=== PATIENT | male | born 1975 | race Hispanic/Latino ===

== ENCOUNTER 2020-06-11 11:26 | Emergency (ER) | payer BC ==
[~2020-06-11] VITALS: Ht 167.6 cm; Wt 91.3 kg
--- NOTE | 2020-06-11 12:54 | Emergency Department Note ---
History of Present Illnes History of Present Illness Chief Complaint: Extremity Trauma/Pain History of Present Illness This is a 45 year old male Chief Complaint Comment Reports that he tripped and fell in his backyard and landed on his right hand onto concrete and today his right hand is swollen and painful and he cannot move his thumb. . Arrival Mode: Car Onset (how long ago): day(s) (1) Location: right wrist Quality: sharp Radiation: Denies non-radiation, Denies back, Denies neck, Denies extremity, Denies abdomen, Denies periumbilical, Denies flank, Denies proximal, Denies distal, Denies other Severity: moderate Onset quality: sudden Duration (how long): day(s) (1) Timing of current episode: constant Progression: worsening Chronicity: new Context: Denies recent illness, Denies recent surgery, Denies recent immobilization, Denies recent travel, Denies trauma/injury, Denies new medications, Denies hx of DVT/PE, Denies non-compliance w/ medications, Denies other Relieving factors: rest Exacerbating factors: movement Associated symptoms: Denies denies other symptoms, Denies confusion, Denies chest pain, Denies cough, Denies diaphoresis, Denies fever/chills, Denies headaches, Denies loss of appetite, Denies malaise, Denies nausea/vomiting, Denies rash, Denies seizure, Denies shortness of breath, Denies syncope, Denies weakness, Denies other Treatments prior to arrival: none Past Medical/Family History Physician Review I have reviewed the patient's past medical and family history. Any updates have been documented here. Past Medical History Recent Fever: No Clinical Suspicion of Infectio: No New/Unexplained Change in Ment: No Past Medical History: Hyperlipedemia Past Surgical History: None Social History Smoking Cessation: Never Smoker Counseling Performed: No Alcohol Use: Occasional Any Illegal Drug Use: No Physically hurt or threatened: No Other Any Pre-Existing Lines (PICC,: No Review of Systems Review of Systems Constitutional: Reports no symptoms EENTM: Reports no symptoms Cardiovascular: Reports no symptoms Respiratory: Reports no symptoms Gastrointestinal: Reports no symptoms Genitourinary: Reports no symptoms Musculoskeletal: Reports as per HPI Integumentary: Reports no symptoms Neurological: Reports no symptoms Psychological: Reports no symptoms Endocrine: Reports no symptoms Hematological/Lymphatic: Reports no symptoms Physical Exam Related Data Allergies: Coded Allergies: naproxen (Verified Allergy, Intermediate, swelling, itching, hives, ) Triage Vital Signs Vital Signs Date Time Temp Pulse Resp B/P (MAP) Pulse Ox O2 Delivery O2 Flow Rate FiO2 06/11/20 11:32 97.5 66 16 151/99 98 Room Air Vital signs reviewed: Yes Physical Exam CONSTITUTIONAL Constitutional: Present well-developed, Present well-nourished HENT HENT: Present normocephalic, Present atraumatic, Present oropharynx clear/moist, Present nose normal HENT L/R: Present left ext ear normal, Present right ext ear normal EYES Eyes: Reports PERRL, Reports conjunctivae normal NECK Neck: Present ROM normal PULMONARY Pulmonary: Present effort normal, Present breath sounds normal CARDIOVASCULAR Cardiovascular: Present regular rhythm, Present heart sounds normal, Present capillary refill normal, Present normal rate GASTROINTESTINAL Abdominal: Present soft, Present nontender, Present bowel sounds normal GENITOURINARY Genitourinary: Present exam deferred SKIN Skin: Present warm, Present dry MUSCULOSKELETAL Musculoskeletal: Present ROM normal, Present tenderness (right wrist) NEUROLOGICAL Neurological: Present alert, Present oriented x 3, Present no gross motor or sensory deficits PSYCHOLOGICAL Psychological: Present mood/affect normal, Present judgement normal Results Imaging Imaging results reviewed: Yes Procedures Orthopedic Splinting/Casting Injury: Injury #1 Side: right Upper exremity injury location: hand Upper extremity immobilizer: volar splint Assessment & Plan Medical Decision Making MDM FX CONTUSION Reassessment Reassessment BETTER Assessment & Plan Final Impression: (1) Fracture of first metacarpal bone of right hand (2) Acute pain due to trauma Depart Disposition: HOME, SELF-CARE Last Vital Signs Date Time Temp Pulse Resp B/P (MAP) Pulse Ox O2 Delivery O2 Flow Rate FiO2 06/11/20 11:32 97.5 66 16 151/99 98 Room Air CARLOS SMITH MD Jun 11, 2020 12:54
--- NOTE | 2020-06-11 12:59 | Diagnostic Imaging Report ---
Exam: Right forearm 2 views, right wrist 3 views, right hand 3 views History: Status post fall Comparison: None. Findings: Forearm: No acute, displaced fracture or dislocation. Partially visualized elbow joint space is well-maintained. Soft tissues unremarkable. Wrist: No acute, displaced carpal fracture or dislocation. Appropriate alignment is maintained between the distal radius, lunate, and capitate on the lateral radiograph. Joint spaces are well-maintained. Soft tissues are unremarkable. Hand: Acute, intra-articular fracture of the base of the first metacarpal with minimal displacement. No additional displaced fracture or dislocation. Joint spaces are well-maintained. Soft tissue swelling overlying the lateral carpus. Impression: Acute, mildly displaced intra-articular fracture of the base of the first metacarpal with overlying soft tissue swelling. Signed by: Dr. Aldo Steel M.D. on 06/11/2020 12:56 PM
--- OUTSIDE RECORDS SUMMARY | 2020-06-14 19:11 | XMS REPORT | Continuity of Care Document ---
Author Author [facility] t Organization [facility] Address [address] [place] [address] Phone Unavailable Care Team Providers Care Plush Brusher Name Role Phone Prateek Masters Attphys Unavailable Prateek Masters Attphys Unavailable CARLOS SMITH Attphys Unavailable Prateek Masters Admphys Unavailable Payers Payer Name Policy Type Policy Number Effective Date Expiration Date S ource Problems This patient has no known problems. Allergies, Adverse Reactions, Alerts Allergy Name Allergy Type Status Severity Reaction(s) Onset Date Inacti ve Date Treating Clinician Comments Source ibuprofen DA Active U 2019-01-09 00:00:00 [facility] naproxen DA Active U 2019-01-09 00:00:00 [facility] ibuprofen DA Active U 2016-03-01 00:00:00 [facility] naproxen DA Active U 2016-03-01 00:00:00 [facility] Medications This patient has no known medications. Procedures This patient has no known procedures. Encounters Start Date/Time End Date/Time Encounter Type Admission Type Attendi [facility] Care Department Encounter ID Source 2020-06-12 14:30:00 2020-06-12 23:59:00 Outpatient 2 H Matt chu Mark [facility] [id number] [facility] 2020-06-12 14:30:00 2020-06-12 14:30:00 Outpatient 2 H Matt chu Mark [facility] [id number] [facility] Results Test Description Test Time Test Comments Results Result Comments Source WRIST 3VW RT - HOPD 2020-06-11 12:50:00 [place] [address] Patient Name: ANTONINA WHEELER MR #: [id number] : 1975 Age/Sex: 45/M Req #: [id number] Adm Physician: Ordered by: CARLOS SMITH MD Report #: [id number] Location: FS Room/Bed: Procedure: [id number] HOPD/WRIST 3VW RT - HOPD Exam Date: 06/11/20 Exam Time: 1209 REPORT STATUS: Signed Exam: Right forearm 2 views, right wrist 3 views, right hand 3 views History: Status post fall Comparison: None. Findings: Forearm: No acute, displaced fracture or dislocation. Partially visualized elbow joint space is well-maintained. Soft tissues unremarkable. Wrist: No acute, displaced carpal fracture or dislocation. Appropriate alignment is maintained between the distal radius, lunate, and capitate on the lateral radiograph. Joint spaces are well- maintained. Soft tissues are unremarkable. Hand: Acute, intra-articular fracture of the base of the first metacarpal with minimal displacement. No additional displaced fracture or dislocation. Joint spaces are well- maintained. Soft tissue swelling overlying the lateral carpus. Impression: Acute, mildly displaced intra-articular fracture of the base of the first metacarpal with overlying soft tissue swelling. Signed by: Dr. Deisy Gama M.D. on 06/11/2020 12:56 PM Dictated By: DEISY GAMA MD 1254 Transcribed By: AKVITHA on 06/11/20 1256 COPY TO: CARLOS SMITH MD HAND 3 VIEW RT - HOPD 2020-06-11 12:50:00 [facility] [address] [place] [address] Patient Name: ANTONINA WHEELER MR #: [id number] : 1975 Age/Sex: 45/M Req #: [id number] Adm Physician: Ordered by: CARLOS SMITH MD Report #: [id number] Location: [facility] Room/Bed: Procedure: [id number] HOPD/HAND 3 VIEW RT - HOPD Exam Date: 06/11/20 Exam Time: 1209 REPORT STATUS: Signed Exam: Right forearm 2 views, right wrist 3 views, right hand 3 views History: Status post fall Comparison: None. Findings: Forearm: No acute, displaced fracture or dislocation. Partially visualized elbow joint space is well-maintained. Soft tissues unremarkable. Wrist: No acute, displaced carpal fracture or dislocation. Appropriate alignment is maintained between the distal radius, lunate, and capitate on the lateral radiograph. Joint spaces are well- maintained. Soft tissues are unremarkable. Hand: Acute, intra-articular fracture of the base of the first metacarpal with minimal displacement. No additional displaced fracture or dislocation. Joint spaces are well- maintained. Soft tissue swelling overlying the lateral carpus. Impression: Acute, mildly displaced intra-articular fracture of the base of the first metacarpal with overlying soft tissue swelling. Signed by: Dr. Deisy Gama M.D. on 06/11/2020 12:56 PM Dictated By: DEISY GAAM MD 1256 Transcribed By: KAVITHA on 06/11/20 1256 COPY TO: CARLOS SMITH MD FOREARM 2 VIEW RT - HOPD 2020-06-11 12:50:00 [facility] [address] [place] [address] Patient Name: ANTONINA WHEELER MR #: [id number] : 1975 Age/Sex: 45/M Req #: [id number] Adm Physician: Ordered by: CARLOS SMITH MD Report #: [id number] Location: FS Room/Bed: Procedure: [id number] HOPD/FOREARM 2 VIEW RT - HOPD Exam Date: 06/11/20 Exam Time: 1209 REPORT STATUS: Signed Exam: Right forearm 2 views, right wrist 3 views, right hand 3 views History: Status post fall Comparison: None. Findings: Forearm: No acute, displaced fracture or dislocation. Partially visualized elbow joint space is well-maintained. Soft tissues unremarkable. Wrist: No acute, displaced carpal fracture or dislocation. Appropriate alignment is maintained between the distal radius, lunate, and capitate on the lateral radiograph. Joint spaces are well- maintained. Soft tissues are unremarkable. Hand: Acute, intra-articular fracture of the base of the first metacarpal with minimal displacement. No additional displaced fracture or dislocation. Joint spaces are well- maintained. Soft tissue swelling overlying the lateral carpus. Impression: Acute, mildly displaced intra-articular fracture of the base of the first metacarpal with overlying soft tissue swelling. Signed by: Dr. Deisy Gama M.D. on 06/11/2020 12:56 PM Dictated By: DEISY GAMA MD 1255 Transcribed By: KAVITHA on 06/11/20 1256 COPY TO: CARLOS SMITH MD - XR CHEST 2 V 2019-02-17 00:48:00 FAX: Tiffany Lockhart MD [phone] [place]: St: REG -- Name: ANTONINA WHEELER [facility] : 1975 Age/S: 43/M [address] [facility] Unit #: [id number] Loc: [place] [address] Phys: Tiffany Lockhart MD Acct: [id number] Dis Date: Status: REG ER PHONE #: [phone] Exam Date: 02/17/2019 0025 FAX #: [phone] Reason: cough EXAMS: CPT CODE: [id number] XR CHEST 2 V 55718 LOCATION: Q15 HISTORY: 43-year-old male who presents with a cough. COMMENT: Frontal and lateral chest radiographs were obtained. An older examination of January 09, 2019 is available for comparison. The lungs are clear and well-aerated. The cardiac silhouette, monty, and mediastinum are within normal limits. The skeleton and soft tissues are unremarkable. IMPRESSION: Unremarkable radiographic examination of the chest. Field 5 at 0048 Reported and signed by: Naveen Charlton M.D. CC: Tiffany Lockhart MD Technologist: Lu Collier [employer] Date/Time/By: 02/17/2019 (0048) : By: [email or web address] Orig Print D/T: S: 02/17/2019 (0051) PAGE 1 Signed Report COMPREHENSIVE METABOLIC PANEL 2019-02-17 00:19:00 Test Item SODIUM (test code = NA) 140 mmol/L 136-145 N POTASSIUM (test code = K) 3.9 mmol/L 3.5-5.1 N CHLORIDE (test code = CL) 107.0 mmol/L 98-107 N CARBON DIOXIDE (test code = CO2) 28.0 mmol/L 21-32 N ANION GAP (test code = GAP) 8.9 10-20 L GLUCOSE (test code = GLU) 103 mg/dL 74-106 N BLOOD UREA NITROGEN (test code = BUN) 18 mg/dL 7-18 N GLOMERULAR FILTRATION RATE (test code = GFR) > 60 mL/min >=60 Estimated GFR by using Modified MDRD formula.Chronic kidney disease is defined as either kidney damageor GFR <60 mL/min/1.73 m2 for >3 months. CREATININE (test code = CREAT) 1.10 mg/dL 0.7-1.3 N BUN/CREATININE RATIO (test code = BUN/CREA) 16.4 10-20 N TOTAL PROTEIN (test code = PROT) 8.0 gram/dL 6.4-8.2 N ALBUMIN (test code = ALB) 4.1 g/dL 3.4-5.0 N GLOBULIN (test code = GLOB) 3.9 gram/dL 2.7-4.2 N ALBUMIN/GLOBULIN RATIO (test code = A/G) 1.1 0.75-1.50 N CALCIUM (test code = CA) 9.1 mg/dL 8.5-10.1 N BILIRUBIN TOTAL (test code = BILT) 0.90 mg/dL 0.0-1.0 N SGOT/AST (test code = AST) 25 IUnit/L 15-37 N SGPT/ALT (test code = ALT) 49 IUnit/L 12-78 N ALKALINE PHOSPHATASE TOTAL (test code = ALKP) 73 IUnit/L 45-117 N Note change in reference range due to change in reagent. COMPREHENSIVE METABOLIC [id number] 00:09:00* Test Item Value Reference Range Interpretation Comments SODIUM (test code = NA) 140 mmol/L 136-145 N POTASSIUM (test code = K) 3.9 mmol/L 3.5-5.1 N CHLORIDE (test code = CL) 107.0 mmol/L 98-107 N CARBON DIOXIDE (test code = CO2) mmol/L 21-32 ANION GAP (test code = GAP) 10-20 GLUCOSE (test code = GLU) mg/dL 74-106 BLOOD UREA NITROGEN (test code = BUN) mg/dL 7-18 GLOMERULAR FILTRATION RATE (test code = GFR) mL/min >=60 CREATININE (test code = CREAT) mg/dL 0.7-1.3 BUN/CREATININE RATIO (test code = BUN/CREA) 10-20 TOTAL PROTEIN (test code = PROT) gram/dL 6.4-8.2 ALBUMIN (test code = ALB) g/dL 3.4-5.0 GLOBULIN (test code = GLOB) gram/dL 2.7-4.2 ALBUMIN/GLOBULIN RATIO (test code = A/G) 0.75-1.50 CALCIUM (test code = CA) mg/dL 8.5-10.1 BILIRUBIN TOTAL (test code = BILT) mg/dL 0.0-1.0 SGOT/AST (test code = AST) IUnit/L 15-37 SGPT/ALT (test code = ALT) IUnit/L 12-78 ALKALINE PHOSPHATASE TOTAL (test code = ALKP) IUnit/L 45-117 CBC W/AUTO HDMY* Test Item Value Reference Range Interpretation Comments WHITE BLOOD CELL (test code = WBC) 12.4 K/mm3 4.5-12.5 N RED BLOOD CELL (test code = RBC) 4.89 mill/mm3 4.0-5.8 N HEMOGLOBIN (test code = HGB) 14.2 gram/dL 13.0-17.5 N HEMATOCRIT (test code = HCT) 42.6 % 42.0-52.0 N MEAN CELL VOLUME (test code = MCV) 87.1 fL 80-98 N MEAN CELL HGB (test code = MCH) 29.0 picogram 27.0-33.0 N MEAN CELL HGB CONCETRATION (test code = MCHC) 33.3 gram/dL 33.0-36. 0 N RED CELL DISTRIBUTION WIDTH (test code = RDW) 12.8 % 11.6-16. 2 N RED CELL DISTRIBUTION WIDTH SD (test code = RDW-SD) 40.1 fL 37 .0-51.0 N PLATELET COUNT (test code = PLT) 274 K/mm3 150-450 N MEAN PLATELET VOLUME (test code = MPV) 10.2 fL 6.7-11.0 N NEUTROPHIL % (test code = NT%) 63.9 % 39.0-69.0 N IMMATURE GRANULOCYTE % (test code = IG%) 0.4 % 0.0-5.0 N LYMPHOCYTE % (test code = LY%) 25.3 % 25.0-55.0 N MONOCYTE % (test code = MO%) 8.0 % 0.0-10.0 N EOSINOPHIL % (test code = EO%) 2.1 % 0.0-5.0 N BASOPHIL % (test code = BA%) 0.3 % 0.0-1.0 N NUCLEATED RBC % (test code = NRBC%) 0.0 % 0-0 N NEUTROPHIL # (test code = NT#) 7.92 K/mm3 1.8-7.7 H IMMATURE GRANULOCYTE # (test code = IG#) 0.05 x10 3/uL 0-0.03 H LYMPHOCYTE # (test code = LY#) 3.14 K/mm3 1.0-5.0 N MONOCYTE # (test code = MO#) 0.99 K/mm3 0-0.8 H EOSINOPHIL # (test code = EO#) 0.26 K/mm3 0.0-0.5 N BASOPHIL # (test code = BA#) 0.04 K/mm3 0.0-0.2 N NUCLEATED RBC # (test code = NRBC#) 0.00 K/mm3 0.0-0.1 N MANUAL DIFF REQUIRED (test code = MDIFF) NO - XR CHEST 2 [id number] 08:56:00 FAX: Iris Masters NP [place]: St: REG Name: ANTONINA CRESPO [facility] : [birth year] Age/S: 43/M [address] [facility] Unit #: [id number] Loc: [place] [address] Phys: Iris Masters NP Acct: [id number] Dis Date: Status: REG ER PHONE #: [phone] Exam Date: 01/09/2019 0847 FAX #: [phone] Reason: cough, chest pain EXAMS: CPT CODE: [id number] XR CHEST 2 V 42862 HISTORY: Cough and chest pain. COMPARISON: March 01, 2016. AP and lateral view of the chest: No acute infiltrates, effusion or congestion. Cardiac and t he mediastinal silhouette are normal IMPRESSION: No acute infiltrates, effusion or congestion. at 0856 Repo rted and signed by: Modesto Rangel M.D. CC: Kellie Masters NP Technologist: OMEGA NARANJO RT (R) Trnscrd Date/Time/By: 01/09/2019 (0856) : By: [email or web address] Orig Print D/T: S: 01/09/2019 (0859) PAGE 1 Signed Report
== END 2020-06-11 13:22 | disposition home or self-care (01) ==
LOC: FSED 11:36
DX: S62.291A Other fracture of first metacarpal bone, right hand, initial encounter for closed fracture (principal); W01.0XXA Fall on same level from slipping, tripping and stumbling without subsequent striking against object, initial encounter; Y93.01 Activity, walking, marching and hiking; Y92.007 Garden or yard of unspecified non-institutional (private) residence as the place of occurrence of the external cause; E78.5 Hyperlipidemia, unspecified
CPT/HCPCS: 99284

== ENCOUNTER → 2021-02-11 | Outpatient (CLI) | payer BC | LOC: RAD 10:35 | PROVIDERS: ATTEND Internal Medicine | DX: M47.812 Spondylosis without myelopathy or radiculopathy, cervical region (principal) | CPT/HCPCS: 72050 ==

== ENCOUNTER → 2021-06-11 | Outpatient (CLI) | payer BC | LOC: RAD 12:46 | PROVIDERS: ATTEND Internal Medicine | DX: S43.401A Unspecified sprain of right shoulder joint, initial encounter (principal); R79.89 Other specified abnormal findings of blood chemistry ==